=== PATIENT | female | born 1985 | race Asian ===

== ENCOUNTER 2018-09-20 13:04 | Emergency (ER) | payer BC ==
[~2018-09-20] VITALS: Wt 49.3 kg
--- NOTE | 2018-09-20 14:37 | ERD ---
ER Documentation Chief Complaint Chief Complaint OBGYN ref: 7wk preg, VB since Wednesday. lower back pain+ pain w urine x2-3d. HPI 33-year-old female G2, P1 at EGA 7 weeks, presents to the emergency department, referred by Dr. Abad again for evaluation of vaginal bleeding for 1 day. ROS All systems reviewed and are negative except as per history of present illness. Medications Home Meds Active Scripts Acetaminophen* (Tylenol*) 325 Mg Tablet, 2 TAB PO Q6 PRN for PAIN AND OR ELEVATED TEMP, #20 TAB Prov:TRINA ESTRADA MD 09/20/18 Allergies Allergies: Coded Allergies: No Known Allergy (Unverified , 09/20/18) FmHx Family History: No diabetes, No coronary disease Physical Exam Vitals Vital Signs Date Temp Pulse Resp B/P (MAP) Pulse Ox O2 O2 Flow FiO2 Time Delivery Rate 09/20/18 98.3 68 16 98/53 (68) 100 Room Air 16:48 09/20/18 98.0 89 18 109/56 99 13:08 (73) Physical Exam Const: No acute distress Head: Atraumatic Eyes: Normal Conjunctiva ENT: Normal External Ears, Nose and Mouth. Neck: Full range of motion. No meningismus. Resp: Clear to auscultation bilaterally Cardio: Regular rate and rhythm, no murmurs Abd: Soft, non tender, non distended. Normal bowel sounds. : Normal external genitalia with mild vaginal bleeding per os. Skin: No petechiae or rashes Back: No midline or flank tenderness Ext: No cyanosis, or edema Neur: Awake and alert Psych: Normal Mood and Affect Result Diagram: 09/20/18 1450 Results 24 hrs Laboratory Tests Test 09/20/18 14:50 White Blood Count 7.3 10^3/ul Red Blood Count 4.05 10^6/ul Hemoglobin 12.3 g/dl Hematocrit 37.9 % Mean Corpuscular Volume 93.6 fl Mean Corpuscular Hemoglobin 30.4 pg Mean Corpuscular Hemoglobin Concent 32.5 g/dl Red Cell Distribution Width 11.5 % Platelet Count 248 10^3/UL Mean Platelet Volume 10.2 fl Immature Granulocytes % 1.000 % Neutrophils % 57.7 % Lymphocytes % 29.0 % Monocytes % 7.7 % Eosinophils % 4.1 % Basophils % 0.5 % Nucleated Red Blood Cells % 0.0 /100WBC Immature Granulocytes # 0.070 10^3/ul Neutrophils # 4.2 10^3/ul Lymphocytes # 2.1 10^3/ul Monocytes # 0.6 10^3/ul Eosinophils # 0.3 10^3/ul Basophils # 0.0 10^3/ul Nucleated Red Blood Cells # 0.0 10^3/ul Beta HCG, Quantitative 258.5 mIU/ml Patient: SARAH ADAMS : 1985 Age: 33 Sex: F MR #: [id number] DOS: 09/20/18 1434 Ordering MD: TRINA ESTRADA MD Location: [facility] Room/Bed: PROCEDURE: US Pelvis. CLINICAL INDICATION: vaginal bleeding TECHNIQUE: Multiple sonographic images of the pelvis were obtained utilizing a transabdominal technique. The images were reviewed on a PACS workstation. COMPARISON: None. FINDINGS: The uterus is enlarged in size and demonstrates a heterogeneous appearance of the myometrium. The uterus measures 12.3 x 5.1 x 7.8 cm in size. There is a 2.2 cm fibroid in the anterior uterus. There is a heterogeneous echogenic structures seen within the endometrium in the lower uterine segment, measuring 3.1 cm in thickness and 5 cm in length.. There is no increased vascularity. The findings are suspicious for hemorrhage. No intrauterine gestation is noted. The ovaries are normal in size and echogenicity. Normal Doppler flow is identified in both ovaries. The right ovary measures 2.8 x 1.7 x 1.9 cm. The left ovary measures 2.3 x 1.0 x 1.7 cm. No free fluid is present within the pelvis.. RPTAT: AA IMPRESSION: No intrauterine gestation visualized. Possible hematoma in the lower uterine segment measuring 5 x 3 cm. Differential diagnosis includes early , missed or ectopic . Follow-up ultrasound and HCG levels is recommended. Procedures/MDM Vital signs stable, Physical exam unremarkable. Differential diagnosis include but not limited to: UTI, threatening , incomplete versus complete , ectopic , physiologic implantation bleeding, molar . Physical examination and clinical presentation most likely consistent with complete spontaneous . During the ED course the patient remained hemodynamically stable and asymptomatic. Results and clinical impression discussed with patient who agrees with management. The patient is stable to be treated outpatient and will be discharged home with close monitoring and follow-up in 2 days with her primary physician. Bed rest and pelvic rest recommended until further medical evaluation. The patient was instructed regarding the outcomes and the potential complications like severe bleeding and pain. If the patient presents severe bleeding or pain, she was instructed to return to the hospital immediately. Disclaimer: Inadvertent spelling and grammatical errors are likely due to EHR/dictation software use and do not reflect on the overall quality of patient care. Also, please note that the electronic time recorded on this note does not necessarily reflect the actual time of the patient encounter. Departure Diagnosis: Primary Impression: Spontaneous Condition: Stable Additional Instructions: Thank you very much for allowing us to participate in your care. Your health and safety is our top priority at [facility]. Call your primary care doctor TOMORROW for an appointment during the next 2-4 days and bring all the information provided. Have prescriptions filled and follow precisely the directions on the label. If the symptoms get worse and your provider is unavailable, return to the Emergency Department immediately. TRINA ESTRADA MD September 20, 2018 14:37
[2018-09-20] MEDS ORDERED: ACET325T33 PO (16:38)
[2018-09-20 16:48] VITALS: BP 98/53; PULSE 68; RESP 16
== END 2018-09-20 16:48 | disposition home or self-care (01) ==
LOC: FTE 13:04
DX: O03.9 Complete or unspecified spontaneous abortion without complication (principal)
CPT/HCPCS: 76801; 84702; 85025; Z7502